=== PATIENT | female | born 2000 | race Caucasian/White ===

== ENCOUNTER 2024-02-15 14:39 | Inpatient (IN) ==
[2024-02-15] MEDS ORDERED: Lidocaine 1% VIAL 10 MG/ML 30 ML VIAL INJ PRN (16:13)
[2024-02-15] MEDS ORDERED: Buffered Lidocaine 1% SYRIN 1 ml INTRADERM ONE (16:13)
[2024-02-15] MEDS: miSOPROStol 100 mcg TAB VAGINAL ONE (17:13)
[2024-02-15 17:34] LABS: Urine Benzodiazepine Screen None Detected (None Detect); Urine Cannabinoids Screen None Detected (None Detect); Urine Opiates Screen None Detected (None Detect)
[2024-02-16 10:20] LABS: ABS Basophils 0.1 10^3/uL (0.0-0.1); ABS Lymphocytes 2.1 10^3/uL (1.0-4.8); ABS Monocytes 0.8 10^3/uL (0.0-0.9); ABS Neutrophils 18.2 10^3/uL (1.5-7.6); ABS Nucleated RBC 0.02 10^3/ul; Hematocrit 34.5 % (35-45); Hemoglobin 11.8 g/dL (11.5-14.3); Lymphocyte % 9.8 %; Mean Corpuscular Hemoglobin 29.2 pg (27-33); Mean Corpuscular Hgb Conc 34.1 g/dL (31-36); Mean Corpuscular Volume 85.4 fL (80-97); Nucleated Red Blood Cells % 0.1 %/100WBC (0.0-0.8); Platelet Count 255 10^3/uL (150-450); Red Blood Count 4.04 10^6/uL (3.63-4.92); Red Cell Distribution Width 14.9 % (12-17); White Blood Count 21.1 10^3/uL (3.8-11.8)
[2024-02-16] MEDS: fentaNYL 100 mcg/2 ml 50 MCG/ML VIAL IV SLOW PU PRN (10:29)
[2024-02-16] MEDS: Lactated Ringers 1000 ml BAG 1,000 ML IV ONE (13:44)
[2024-02-16] MEDS: Oxytocin in LR 20,000 MILLI.UNIT/1,000 ML BAG IV SCH ×2 (13:44→22:56)
[2024-02-16] MEDS: Lactated Ringers 1000 ml BAG 1,000 ML IV SCH (16:58)
[2024-02-16] MEDS: D5LR 1000 ml BAG 1,000 ML IV SCH (17:19)
[2024-02-16] MEDS: fentaNYL 100 mcg/2 ml 50 MCG/ML VIAL ONE (21:30)
[2024-02-16] MEDS: Methylergonovine 0.2 mg AMPULE 1 ml AMP ONE (21:34)
[2024-02-16] MEDS: fentaNYL 100 mcg/2 ml 50 MCG/ML VIAL IV SLOW PU ONE (21:38)
[2024-02-16] MEDS: ceFOXitin 3 GM in NS 0.9% 100 ml BAG 100 ML IVPB ONE (21:45)
[2024-02-16] MEDS ORDERED: Lactated Ringers 1000 ml BAG 1,000 ML IV SCH (22:00)
[2024-02-16] MEDS ORDERED: Phenylephrine IV 10 MG/ML 1 ml VIAL ONE (22:04)
[2024-02-16] MEDS ORDERED: Oxytocin 10 UNITS/ML 1 ML VIAL ONE ×2 (22:43→22:47)
[2024-02-16] MEDS ORDERED: oxyCODONE/Acetamin 5/325 mg TAB PO PRN (23:01)
[2024-02-16] MEDS ORDERED: Naloxone 0.4 mg VIAL 0.4 mg/ml 1 ml VIAL IV PRN (23:01)
[2024-02-16] MEDS ORDERED: fentaNYL 100 mcg/2 ml 50 MCG/ML VIAL IV PRN (23:01)
[2024-02-16] MEDS ORDERED: Ondansetron 4 mg VIAL 2 MG/ML 2 ml VIAL IV PRN (23:01)
[2024-02-16 23:39] LABS: Hematocrit 28.2 % (35-45); Hemoglobin 9.6 g/dL (11.5-14.3); Mean Corpuscular Hemoglobin 29.2 pg (27-33); Mean Corpuscular Hgb Conc 34.2 g/dL (31-36); Mean Corpuscular Volume 85.6 fL (80-97); Platelet Count 199 10^3/uL (150-450); Red Cell Distribution Width 14.8 % (12-17); White Blood Count 27.7 10^3/uL (3.8-11.8)
[2024-02-16 23:54] LABS: Activated Partial Thrombo Time 24.8 seconds (26.0-38.0); INR 0.96 (0.83-1.13)
[2024-02-17 00:09] LABS: Platelet Count 199 10^3/ul (150-450)
[2024-02-17 00:58] LABS: Schistocytes ABSENT
[2024-02-17 04:10] LABS: Hematocrit 25.2 % (35-45); Hemoglobin 8.7 g/dL (11.5-14.3); Mean Corpuscular Hemoglobin 29.1 pg (27-33); Mean Corpuscular Hgb Conc 34.4 g/dL (31-36); Mean Corpuscular Volume 84.7 fL (80-97); Mean Platelet Volume 9.1 fL (7.5-11.2); Platelet Count 201 10^3/uL (150-450); Red Blood Count 2.97 10^6/uL (3.63-4.92); Red Cell Distribution Width 14.9 % (12-17); White Blood Count 25.4 10^3/uL (3.8-11.8)
[2024-02-17] MEDS: Methylergonovine 0.2 mg AMPULE 1 ml AMP IM ONE (04:23)
[2024-02-17] MEDS: IVPREMIX ONE (04:27)
[2024-02-17] MEDS: CEFOXITIN 2 GM ONE (04:27)
[2024-02-17 04:36] LABS: ABS Basophils 0.1 10^3/uL (0.0-0.1); ABS Lymphocytes 2.8 10^3/uL (1.0-4.8); ABS Monocytes 1.5 10^3/uL (0.0-0.9)
[2024-02-17] MEDS: ceFAZolin 2 GM PREMIX 2 GM/50 ML BAG IV SCH (06:06)
[2024-02-17] MEDS: Dibucaine 1% OINT 28.35 GM TUBE PR PRN (07:24)
[2024-02-17] MEDS: Witch Hazel PAD JAR TOPICAL PRN (07:24)
[2024-02-17] MEDS: Iron Sucrose 200 MG in NS 0.9% 100 ml BAG 100 ML IVPB ONE (13:15)
[2024-02-18 07:10] LABS: ABS Eosinophils 0.1 10^3/uL (0.0-0.5); ABS Lymphocytes 4.1 10^3/uL (1.0-4.8); ABS Neutrophils 13.7 10^3/uL (1.5-7.6); Eosinophil % 0.5 %; Hematocrit 21.3 % (35-45); Hemoglobin 7.2 g/dL (11.5-14.3); Lymphocyte % 21.4 %; Mean Corpuscular Hemoglobin 29.1 pg (27-33); Mean Corpuscular Hgb Conc 33.6 g/dL (31-36); Mean Corpuscular Volume 86.5 fL (80-97); Mean Platelet Volume 8.7 fL (7.5-11.2); Platelet Count 216 10^3/uL (150-450); Red Blood Count 2.47 10^6/uL (3.63-4.92); Red Cell Distribution Width 15.1 % (12-17)
[2024-02-18] MEDS: Iron Sucrose 200 MG in NS 0.9% 100 ml BAG 100 ML IVPB ONE (13:04)
[2024-02-18 13:11] VITALS: BP 116/62
== END 2024-02-18 15:34 | disposition home or self-care (01) | DRG 541 ==
LOC: MCHOBOUT 14:39 → MCHOB 15:33
PROVIDERS: ADMIT Midwife; ATTEND Midwife